=== PATIENT | male | born 1955 | race African-American/Black ===

== ENCOUNTER → 2017-01-15 | Day surgery (SDC) | payer OTHER ==
[~2017-01-15] MED LIST: AMLODIPINE BESY10 MG PO; ASPIRIN PO; AVANDIA; BAYER CHEWABLE81 MG PO; JANUMET; JANUVIA100 MG PO; LANTUS100 U/ML; LANTUS100 U/ML INJ; LIPITOR; LIPITOR PO; LIPITOR80 MG PO; LISINOPRIL PO; LISINOPRIL20 MG PO; METFORMIN HCL500 M1 PO; METOPROLOL TART25 MG; NEXIUM PO; NOVOLIN R100 U/ML INJ; NOVOLOG100 U/ML; UNKNOWN BP MED; VICTOZA0.6 MG/0.1 SUBQ; VITAMIN D2400 UNIT; ZESTORETIC 20-1 EAC1 PO
--- NOTE | ~2017-01-15 | OR ---
Unit #: [id number] #: [id number] Patient: DEIRDRE GHOTRA [id number] [address] [place], [place] [address] [id number] MR#: [id number] NAME: DEIRDRE GHOTRA ROOM: Date of Procedure: 01/15/2017 Admission Date: 01/15/2017 Surgeon: Yusuf Hollingsworth M.D. : 1955 Attending Physician: Yusuf Hollingsworth M.D. Primary Care Physician: Nadeem Weller Jr., M.D. OPERATIVE REPORT PRIMARY CARE PHYSICIAN Nadeem Weller M.D. PREOPERATIVE DIAGNOSES The patient has presented for colorectal cancer surveillance. He has a personal history of colonic polyps. PROCEDURE PERFORMED Colonoscopy up to cecum and terminal ileum with excellent preparation and good visualization. POSTOPERATIVE DIAGNOSES Completely normal examination up to terminal ileum. The quality of the prep was excellent. RECOMMENDATIONS Repeat colonoscopy in 5 years. SEDATION USED MAC. DESCRIPTION OF PROCEDURE Following detailed explanation of the potential risks and complications of a colonoscopy, namely perforation, bleeding, complication related to sedation, the patient was brought to GI lab and laid in the left lateral decubitus position. A digital rectal examination was performed, which was normal. Lubricated tip of the Olympus video colonoscope was inserted through the anus and advanced under direct vision. The scope was advanced and passed up to sigmoid into descending colon. No diverticula were noted in this area. The scope was then navigated all the way up to cecum with visualization of the ileocecal valve and the appendiceal orifice. Preparation was excellent with good visualization and photodocumentation was obtained. Last several inches of the terminal ileum also visualized after intubation of ileocecal valve and appeared normal. Successive segments of the colonic mucosa were examined upon withdrawal and appeared unremarkable. There being no polyps, mass lesions, AVMs, or diverticula. The patient did not have any hemorrhoids at anal verge. The scope was then withdrawn. The patient returned to the recovery area. He tolerated the procedure without any postprocedure complications. Dictated by... Unit #: [id number] #: [id number] Patient: DEIRDRE GHOTRA Galo Ramires/thang TD: 01/17/2017 06:17 JOB #: [id number] OPERATIVE REPORT Page 1 of 1 X Yusuf Hollingsworth MD PROCEDURE OPERATIVE NOTE
== END | disposition home or self-care (01) ==
LOC: COPS 12:40
DX: Z12.11 Encounter for screening for malignant neoplasm of colon (principal); E11.9 Type 2 diabetes mellitus without complications; I10 Essential (primary) hypertension; E89.0 Postprocedural hypothyroidism; E78.5 Hyperlipidemia, unspecified; Z86.010 Personal history of colon polyps; Z87.01 Personal history of pneumonia (recurrent); Z79.84 Long term (current) use of oral hypoglycemic drugs; Z79.899 Other long term (current) drug therapy; Z98.890 Other specified postprocedural states
CPT/HCPCS: 82947